=== PATIENT | male | born 1980 ===

== ENCOUNTER 2021-06-08 15:31 | Emergency (ER) | payer OTHER, SELFPAY ==
--- NOTE | ~2021-06-08 | XR_ITS ---
EXAMINATION: XR ANKLE, RIGHT CLINICAL INFORMATION: Deformity COMPARISON: None TECHNIQUE: AP, lateral, and mortise views of the right ankle. FINDINGS: No fracture or dislocation. The ankle mortise is congruent. There is circumferential soft tissue swelling which is greatest laterally. Ankle joint effusion present. Tiny Achilles heel spur. XR/XR ankle RT min 3V IMPRESSION: No fracture or malalignment. Soft tissue swelling.
[2021-06-08 15:55] VITALS: BP 133/81; PULSE 105; RESP 18; O2SAT 99; BMI 27.8
--- NOTE | 2021-06-08 16:59 | ED.LOWEXIN ---
HPI - Extremity Injury (Lower) General Chief Complaint: Extremity Injury, Lower Stated Complaint: ?fx rt ankle Time Seen by Provider: 06/08/21 16:05 Source: patient Mode of arrival: ambulatory Limitations: no limitations History of Present Illness HPI Narrative: 40-year-old male came in for evaluation of right ankle injury. Patient was carrying heavy couch going on the stair and thinks that he twisted his ankle, patient is able to ambulate with pain and difficulties. Related Data Previous Rx's Medication Instructions Recorded ibuprofen 600 mg tablet 600 mg PO TID PRN #20 tab 06/08/21 Allergies Allergy/AdvReac Type Severity Reaction Status Date / Time No Known Allergies Allergy Unverified 04/20/20 15:19 Review of Systems Review of Systems: All other systems are reviewed and are negative Constitutional: Reports as per HPI and Reports no additional constitutional complaints Eyes: Reports as per HPI and Reports no additional eye complaints Reports system reviewed and no additional complaints, except as documented Cardiovascular: Reports as per HPI and Reports no additional cardiovascular complaints Respiratory: Reports as per HPI and Reports no additional respiratory complaints Gastrointestinal: Reports as per HPI and Reports no additional gastrointestinal complaints Genitourinary: Reports no additional female genitourinary complaints Musculoskeletal: Reports no additional musculoskeletal complaints Skin/Breast: Reports system reviewed and no additional complaints, except as docu Psychiatric: Reports no additional psychiatric complaints Endocrine: Reports no additional endocrine complaints Hematologic/Lymphatic: Reports no additional hematologic/lymphatic complaints Allergic/Immunologic: Reports no additional allergic/immunologic complaints Reports system reviewed and no additional complaints, except as documented and Reports Abnormal speech present [facility] Past Medical History Medical History No pertinent past medical history Surgical History No pertinent past surgical history Social History Social History Advance Directives: No Advance Directives Information Provided: No Physical Exam Vital Signs: Vital Signs: Last Vital Signs Pulse 105 H 06/08/21 15:55 Resp 18 06/08/21 15:55 BP 133/81 06/08/21 15:55 Pulse Ox 99 06/08/21 15:55 Body Mass Index 27.8 Vital signs have been reviewed as appeared to be correct. Blood pressure normal. Heart rate normal. Respiration rate normal. Temperature normal. Oxygen saturation normal. Appearance: Alert. Oriented X3. No acute distress. Head: Normal external exam. Normocephalic. Atraumatic. No Subramanian signs noted. No raccoon eyes noted Eyes: PERRLA. EOMI. Conjunctiva and sclera normal. Eyelids normal. ENT: TM's Normal. Pharynx normal. Uvula midline. Moist mucous membranes. No trismus noted. No drooling noted. No muffled voice noted. Neck: Normal inspection. Neck supple. FROM. No adenopathy. Thyroid Normal. No meningeal signs. No neck mass noted. CVS: Normal heart rate and rhythm. Heart sound normal. No murmurs noted. Pulses normal throughout. Respiratory: No respiratory distress. Painless inspiration. Breath sounds normal. No wheezes/rales/rhonchi noted. Chest nontender. No accessory muscle usage noted or decreased air movement noted. Abdomen: Soft and nontender. Bowel sounds normal in all 4 quadrants. No distention noted. No organomegaly noted. No visible injury noted. Back: No CVA tenderness. Full range of motion noted. Skin: Skin warm and dry. Normal skin color. Normal skin turgor. No rashes/lesions/lacerations noted. Extremities: Right ankle: Mild tenderness and swelling over the lateral malleolus, no step-off, no deformity, neurovascular intact. Neuro: Oriented X 3. Cranial nerve exam: II-XII are grossly intact No motor deficit. No sensory deficit. Reflexes normal. Course Course Course Narrative: Assessment and plan. Right ankle contusion. Crutches/ice/elevation/NSAIDs. MDM - Extremity Injury (Lower) Medical Records Attestation: I reviewed the patient's medical records. Lab Data Attestation: I reviewed the patient's lab results. Imaging Data Right ankle x-ray: Radiologist's impression: No fracture or malalignment. Soft tissue swelling. Discharge Plan Discharge Clinical Impression: Ankle sprain and strain Patient Disposition: Home, Self-Care Instructions: Ankle Strain (ED) Prescriptions: New ibuprofen 600 mg tablet 600 mg PO TID PRN (Reason: pain) Qty: 20 RF: 0 Referrals: Herrera Contreras MD [Physician] - 2 days Stand Alone Forms: Work/School Release
[2021-06-08] MEDS: Ibuprofen 800 MG TABLET PO (17:55)
== END 2021-06-08 18:14 | disposition home or self-care (01) ==
PROVIDERS: Emergency Provider Emergency Medicine
DX: S93.401A Sprain of unspecified ligament of right ankle, initial encounter (principal); S96.911A Strain of unspecified muscle and tendon at ankle and foot level, right foot, initial encounter; W10.8XXA Fall (on) (from) other stairs and steps, initial encounter; Y93.89 Activity, other specified; Y92.008 Other place in unspecified non-institutional (private) residence as the place of occurrence of the external cause; Y99.9 Unspecified external cause status
CPT/HCPCS: 73610; 99283

== ENCOUNTER 2023-02-01 17:52 | Emergency (ER) | payer MEDICAID, SELFPAY ==
[2023-02-01 17:55] VITALS: BP 125/77; PULSE 99; RESP 18; TEMP 36.9; O2SAT 97; BMI 29.0
--- NOTE | 2023-02-01 17:56 | ED_ITS ---
HPI - General Adult General Chief complaint: Wound/Laceration Stated complaint: spider bit left leg Time Seen by Provider: 02/01/23 21:00 Source: patient Mode of arrival: ambulatory Limitations: no limitations History of Present Illness HPI narrative: 42-year-old male status post right AKA, homeless presents with left leg pain and swelling. Patient was bit by a spider 3 days ago. Over the last day and half he has had increasing redness and swelling to the left lower extremity. He describes pain as being tight. Is a 7/10. The pain does not radiate. There is no numbness or tingling. Symptoms are worse with ambulation. They are better with rest and elevation. He denies any chest pain or shortness of breath. Related Data Previous Rx's Medication Instructions Recorded sulfamethoxazole 800 1 tab PO Q12H #20 tabs 02/01/23 mg-trimethoprim 160 mg tablet (Bactrim DS) Allergies Allergy/AdvReac Type Severity Reaction Status Date / Time No Known Allergies Allergy Verified 02/01/23 17:58 Review of Systems Review of Systems: CONSTITUTIONAL: Denies weight loss, fever and chills. HEENT: Denies changes in vision and hearing. RESPIRATORY: Denies SOB and cough. CV: Denies palpitations no CP. GI: Denies abdominal pain, nausea, vomiting and diarrhea. : Denies dysuria and urinary frequency. MSK: Denies myalgia and joint pain. SKIN: + rash - pruritus. NEUROLOGICAL: Denies headache and syncope. PSYCHIATRIC: Denies recent changes in mood. Denies anxiety and depression. All other ROS are negative unless in HPI PMFSH Social History Social History Advance Directives: No Advance Directives Information Provided: No Physical Exam ED Vital Signs: Vital Signs - 24 hr 02/01/23 17:55 02/01/23 18:51 Temperature 98.5 F 98.9 F Pulse Rate 99 90 Respiratory Rate 18 16 Blood Pressure 125/77 120/81 Pulse Oximetry 97 97 Oxygen Delivery Method Room Air Room Air BMI result Body Mass Index 29.0 GEN: Well developed, no acute distress, alert, oriented HEENT: Normocephalic, atraumatic, normal external ears, nose appears normal Eyes: Normal to appearance Neck: Supple, no lymphadenopathy Respiratory: Talks in complete sentences, no respiratory distress Extremities: No clubbing cyanosis or edema Neurologic: No focal neurologic deficits, cranial nerves 2-12 intact, gait normal Skin: No rash, cellulitic changes the left lower extremity below the knee, evidence of abrasion/insect bite. There is no popliteal pain, neurovascularly intact in left, skin is warm and red tender to palpation. Course Course Course Narrative: RME performed by Noemi Anderson PA-C. Patient is a 42 year old assigned male at presenting to the emergency department with left lower leg pain after a spider bite. Patient states that he has been hanging out in the [place] a lot lately and believes he was bit by a spider. Patient states that he does have a history of IVDU. Labs ordered. Patient placed back in the waiting room pending room availability and results. Reevaluation(s) Reevaluation #1: The workup is complete. There is no significantly elevated white blood cell count, left shift or bandemia. Patient has cellulitic changes left lower extremity. Bactrim is appropriate since he is homeless. Doxycycline would cause photo sensitivity in would be a poor choice for him. Patient was given Tylenol and ibuprofen. I provided him with a sandwich, cheese and soft drink he will shrimp picker his prescription tomorrow morning. Return for any worsening or concerning symptoms. Time: 22:19 Medications Administered Discontinued Medications Generic Name Dose Route Start Last Admin Trade Name David PRN Reason Stop Dose Admin Acetaminophen 975 mg 02/01/23 21:10 02/01/23 21:24 Acetaminophen 325 Mg Tablet PO 02/01/23 21:11 975 mg ONCE ONE Administration Ibuprofen 600 mg 02/01/23 21:10 02/01/23 21:25 Ibuprofen 600 Mg Tablet PO 02/01/23 21:11 600 mg ONCE ONE Administration Trimethoprim/Sulfamethoxazole 1 tab 02/01/23 21:10 02/01/23 21:24 Sulfamethox/Trimeth 800/160 Tablet PO 02/01/23 21:11 1 tab ONCE ONE Administration Medical Decision Making Medical Decision Making [facility] Narrative: 42-year-old male presents with left lower extremity pain, swelling and redness. Symptoms started 3 days ago. Exam is consistent with cellulitis. There is no discrete abscess. The redness and swelling is to the anterior part of the leg where there is an abrasion/insect bite. Doubt DVT, PE, stasis dermatitis, etc. Plan: Antibiotics, analgesics Follow-up: Return to the emergency department if needed otherwise follow-up with primary care in 5 days. Differential Diagnosis Differential Diagnoses: The differential diagnosis associated with the prese ntation includes (See above) Admission/Observation Consideration of admission/observation: Escalation of care including admission/observation considered (Admission considered if significant bandemia found on CBC) Lab Data MDM Lab Attestation statement: I reviewed the patient's lab results. 02/01/23 18:34 02/01/23 18:34 Labs: Lab Results 02/01/23 02/01/23 02/01/23 Range/Units 18:34 18:34 18:34 WBC 10.9 H (4.8-10.8) X10*3/uL RBC 4.26 L (4.60-5.80) X10*6/uL Hgb 12.9 L (14.0-18.0) g/dl Hct 38.2 L (42.0-52.0) % MCV 89.7 (80.0-98.0) fL MCH 30.3 (27.0-33.0) pg MCHC 33.8 (31.0-36.0) g/dl RDW 12.6 (11.0-16.0) % Plt Count 303 (160-400) X10*3/uL MPV 10.3 (9.4-12.4) fL Immature Gran % (Auto) 0.3 (0.0-0.4) % Neut % (Auto) 68.4 (45-73) % Lymph % (Auto) 23.2 (20-40) % [place] % (Auto) 7.8 (2-11) % Eos % (Auto) 0.1 (0-4) % Baso % (Auto) 0.2 (0-2) % Lymph # (Auto) 2.5 (1.2-4.9) X10*3/uL [place] # (Auto) 0.9 (0.1-1.2) X10*3/uL Eos # (Auto) 0.0 (0.0-0.4) X10*3/uL Baso # (Auto) 0.0 (0.0-0.2) X10*3/uL Abs Immat Gran (auto) 0.03 (0.00-0.03) X10*3/uL Absolute Neuts (auto) 7.5 (2.0-8.3) x10*3/uL Absolute Nucleated RBC 0.000 (0.0-0.012) X10*3/uL Nucleated RBC % (auto) 0.0 (0.0-0.2) /100WBC ESR 29 H (0-15) MM/HR Sodium 139 (135-145) mmol/L Potassium 3.9 (3.3-5.1) mmol/L Chloride 104 (96-108) mmol/L Carbon Dioxide 24 (22-29) mmol/L Anion Gap 15 (12-20) BUN 16 (9-16) mg/dL Creatinine 1.01 (0.5-1.4) mg/dL Estim Creat Clear Calc 115.9 Estimated GFR > 60 Random Glucose 110 (60-115) mg/dL Lactic Acid (0.5-2.0) mmol/L Calcium 9.7 (8.4-10.2) mg/dL Magnesium 2.0 (1.6-2.6) mg/dL Total Bilirubin 0.4 (0.0-1.0) mg/dL AST 24 (5-37) U/L ALT 13 (0-40) U/L Alkaline Phosphatase 85 (39-117) U/L C-Reactive Protein 5.39 H (< or = 0.50) mg/dL Total Protein 8.2 H (6.5-8.0) g/dL Albumin 4.0 (3.5-5.0) g/dL 02/01/23 Range/Units 18:34 WBC (4.8-10.8) X10*3/uL RBC (4.60-5.80) X10*6/uL Hgb (14.0-18.0) g/dl Hct (42.0-52.0) % MCV (80.0-98.0) fL MCH (27.0-33.0) pg MCHC (31.0-36.0) g/dl RDW (11.0-16.0) % Plt Count (160-400) X10*3/uL MPV (9.4-12.4) fL Immature Gran % (Auto) (0.0-0.4) % Neut % (Auto) (45-73) % Lymph % (Auto) (20-40) % [place] % (Auto) (2-11) % Eos % (Auto) (0-4) % Baso % (Auto) (0-2) % Lymph # (Auto) (1.2-4.9) X10*3/uL [place] # (Auto) (0.1-1.2) X10*3/uL Eos # (Auto) (0.0-0.4) X10*3/uL Baso # (Auto) (0.0-0.2) X10*3/uL Abs Immat Gran (auto) (0.00-0.03) X10*3/uL Absolute Neuts (auto) (2.0-8.3) x10*3/uL Absolute Nucleated RBC (0.0-0.012) X10*3/uL Nucleated RBC % (auto) (0.0-0.2) /100WBC ESR (0-15) MM/HR Sodium (135-145) mmol/L Potassium (3.3-5.1) mmol/L Chloride (96-108) mmol/L Carbon Dioxide (22-29) mmol/L Anion Gap (12-20) BUN (9-16) mg/dL Creatinine (0.5-1.4) mg/dL Estim Creat Clear Calc Estimated GFR Random Glucose (60-115) mg/dL Lactic Acid 1.7 (0.5-2.0) mmol/L Calcium (8.4-10.2) mg/dL Magnesium (1.6-2.6) mg/dL Total Bilirubin (0.0-1.0) mg/dL AST (5-37) U/L ALT (0-40) U/L Alkaline Phosphatase (39-117) U/L C-Reactive Protein (< or = 0.50) mg/dL Total Protein (6.5-8.0) g/dL Albumin (3.5-5.0) g/dL Prescription Management I considered prescription management with: Pain Medication and Antibiotic Social Determinants Patient?s care significantly limited by Social Determinants of Health including: Inadequate housing Discharge Plan Discharge Clinical Impression: Cellulitis Patient Disposition: Home, Self-Care Instructions: Cellulitis (ED) Prescriptions: New sulfamethoxazole-trimethoprim [Bactrim DS] 800-160 mg tablet 1 tab PO Q12H Qty: 20 0RF Referrals: [facility] [Provider Group] - 5 days Interventions: ED Discharge Assessment Last Done: 02/01/23 22:12 Discharge Date/Time: 02/01/23 22:12
--- NOTE | 2023-02-01 18:38 | MHC.EDTECH ---
PATIENT 1ST SET OF BLOOD CULTURE ,LACTIC ACID AND BLOOD DRAWN AND SENT TO LAB .
[2023-02-01 18:51] VITALS: BP 120/81; PULSE 90; RESP 16; TEMP 37.2; O2SAT 97
--- NOTE | 2023-02-01 21:30 | PC.NURSE ---
pt medicated per OCT for 6/10 left leg pain, given sandwiches and shayna grey.
== END 2023-02-01 22:12 | disposition home or self-care (01) ==
PROVIDERS: Emergency Provider Emergency Medicine
DX: L03.116 Cellulitis of left lower limb (principal); M79.605 Pain in left leg
CPT/HCPCS: 36415; 80053; 83605; 83735; 85025; 85652; 86140; 87040; 99284; 99285

== ENCOUNTER 2023-02-05 17:50 | Emergency (ER) | payer MEDICAID, SELFPAY ==
[2023-02-05 18:03] VITALS: BP 118/74; PULSE 90; RESP 18; TEMP 37.4; O2SAT 96; BMI 29.8
--- NOTE | 2023-02-05 18:04 | ED_ITS ---
HPI - General Adult General Chief complaint: General Medical Stated complaint: seen prev. here for spider bite going down leg Time Seen by Provider: 02/05/23 18:31 Source: patient Mode of arrival: ambulatory Limitations: no limitations History of Present Illness HPI narrative: Patient is a 42-year-old male presents emergency department for evaluation of cellulitis of the left lower extremity. Patient was seen here reportedly a few days ago, was given a prescription for Bactrim which he has been compliant with. He states that the redness and swelling is improving but has not completely resolved therefore he wanted to have this re-evaluated. Denies fevers, chills, numbness or tingling to the extremity, inability to walk on the extremity. The swelling has not worsened by his account. Pain is currently 4/10, nonradiating. He denies any chest pain or shortness of breath. Related Data Previous Rx's Medication Instructions Recorded sulfamethoxazole 800 1 tab PO Q12H #20 tabs 02/01/23 mg-trimethoprim 160 mg tablet (Bactrim DS) Allergies Allergy/AdvReac Type Severity Reaction Status Date / Time No Known Allergies Allergy Verified 02/01/23 17:58 Review of Systems Review of Systems: Constitutional: No weight loss, fever, chills, weakness or fatigue. Skin: No rash or itching. Cardiovascular: No chest pain, chest pressure or chest discomfort. No palpita tions Respiratory: No shortness of breath, cough or sputum production. Gastrointestinal: No nausea, vomiting or diarrhea. No abdominal pain Genitourinary: No burning micturition. No urinary frequency or incontinence. Musculoskeletal: No muscle pain, back pain, joint pain or stiffness. Left lower extremity swelling and redness as per HPI with pain Psychiatric: No depression or anxiety. Yes all other systems are reviewed and are negative [facility] Past Medical History Attestation statement: The following information was validated with the patient. Source: old records reviewed Social History Social History Advance Directives: No Advance Directives Information Provided: No Physical Exam ED Vital Signs: Vital Signs - 24 hr 02/05/23 18:03 Temperature 99.4 F Pulse Rate 90 Respiratory Rate 18 Blood Pressure 118/74 Pulse Oximetry 96 Oxygen Delivery Method Room Air BMI result Body Mass Index 29.8 Appearance: Alert.?Oriented to person, place and time. No acute distress.?Normal affect. Eyes: Pupils equal, round and reactive to light.? ENT: Pharynx normal.?? Neck: Normal inspection.? Neck supple.?? CVS: Heart sounds normal. Normal heart rate and rhythm.? Pulses normal.?? Respiratory: No respiratory distress.? Lung sounds clear to auscultation bilaterally?? Abdomen: Soft and non-tender. Normoactive bowel sounds.?? Skin: Skin warm and dry.? Normal skin color.? ? Extremities: Left lower extremity with cellulitic changes; erythema and warmth with mild tenderness upon palpation below the knee with healing abrasions. Neurovascularly intact distally, 2+ DP/PT pulse bilaterally? No calf ttp? Neuro: Moves all extremities spontaneously. Sensation intact bilaterally. t. No focal neuro deficits. Ambulates with normal steady gait. Course Course Course Narrative: RME- 42-year-old male presents for evaluation of left lower leg redness. He was diagnosed with a cellulitis 4 days ago and has been on Bactrim since then. Reports his symptoms are worsening but denies fevers. Plan for labs including blood cultures Medical Decision Making Medical Decision Making [facility] [place] Narrative: Patient is a 42-year-old male who presents emergency department for evaluation of left lower extremity cellulitis, reportedly has been compliant with Bactrim. Upon examination cellulitis appears to be persistent, no obvious abscess, extremities neurovascularly intact distally. Cellulitis is actually improving but has not completely resolved. He has been on antibiotics for 4 days at this point, he was given a 10 day course. I reviewed labs obtained from rapid medical examination, no leukocytosis no bandemia, WBC is 7.7 which is actually improved from prior visit at 10.9, and chemistries are overall unremarkable. I considered ultrasound imaging of the lower extremity, however I have a low suspicion for DVT at this time. Feel the patient is stable for discharge home and continued Bactrim for management of cellulitis. Blood cultures were obtained, will be followed accordingly. Differential Diagnosis Differential Diagnoses: The differential diagnosis associated with the presentation includes (Cellulitis, abscess, DVT, this is dermatitis, insect bite ) Lab Data [facility] [place] Lab Attestation statement: I reviewed the patient's lab results. (As per narrative above) 02/05/23 19:46 02/05/23 19:27 Labs: Lab Results 02/05/23 02/05/23 Range/Units 19:27 19:46 WBC 7.7 (4.8-10.8) X10*3/uL RBC 4.21 L (4.60-5.80) X10*6/uL Hgb 12.6 L (14.0-18.0) g/dl Hct 37.3 L (42.0-52.0) % MCV 88.6 (80.0-98.0) fL MCH 29.9 (27.0-33.0) pg MCHC 33.8 (31.0-36.0) g/dl RDW 12.7 (11.0-16.0) % Plt Count 340 (160-400) X10*3/uL MPV 9.8 (9.4-12.4) fL Immature Gran % (Auto) 0.1 (0.0-0.4) % Neut % (Auto) 59.3 (45-73) % Lymph % (Auto) 35.2 (20-40) % [place] % (Auto) 4.9 (2-11) % Eos % (Auto) 0.1 (0-4) % Baso % (Auto) 0.4 (0-2) % Lymph # (Auto) 2.7 (1.2-4.9) X10*3/uL [place] # (Auto) 0.4 (0.1-1.2) X10*3/uL Eos # (Auto) 0.0 (0.0-0.4) X10*3/uL Baso # (Auto) 0.0 (0.0-0.2) X10*3/uL Abs Immat Gran (auto) 0.01 (0.00-0.03) X10*3/uL Absolute Neuts (auto) 4.6 (2.0-8.3) x10*3/uL Absolute Nucleated RBC 0.000 (0.0-0.012) X10*3/uL Nucleated RBC % (auto) 0.0 (0.0-0.2) /100WBC Sodium 139 (135-145) mmol/L Potassium 5.0 D (3.3-5.1) mmol/L Chloride 106 (96-108) mmol/L Carbon Dioxide 22 (22-29) mmol/L Anion Gap 16 (12-20) BUN 9 (9-16) mg/dL Creatinine 0.94 (0.5-1.4) mg/dL Estim Creat Clear Calc 122.6 Estimated GFR > 60 Random Glucose 87 (60-115) mg/dL Calcium 9.6 (8.4-10.2) mg/dL Total Bilirubin 0.3 (0.0-1.0) mg/dL AST 28 (5-37) U/L ALT 13 (0-40) U/L Alkaline Phosphatase 94 (39-117) U/L Total Protein 8.3 H (6.5-8.0) g/dL Albumin 3.9 (3.5-5.0) g/dL Lipase 11 (8-78) U/L External Record Review External record reviewed: Outpatient record Tests considered The following testing was considered but not selected: Considered ultrasound imaging as per narrative above however deferred Prescription Management I considered prescription management with: Other (Continued use of previously prescribed antibiotic) Social Determinants Patient?s care significantly limited by Social Determinants of Health including: Inadequate housing Discharge Plan Discharge Clinical Impression: Cellulitis Patient Disposition: Home, Self-Care Instructions: Cellulitis (ED) Additional Instructions: Your blood work today has actually improved from were seen here previously. This is very reassuring. Please continue to take the Bactrim as prescribed, you were given a ten-day course. If your symptoms are worsening, or you have any new concerns you are welcome to return back to the emergency department. Prescriptions: No Action sulfamethoxazole-trimethoprim [Bactrim DS] 800-160 mg tablet 1 tab PO Q12H Qty: 20 0RF Referrals: Physician,Unknown J [Primary Care Provider] -
== END 2023-02-05 20:34 | disposition home or self-care (01) ==
PROVIDERS: Emergency Provider Emergency Medicine Emergency Medical Services
DX: L03.116 Cellulitis of left lower limb (principal)
CPT/HCPCS: 36415; 80053; 83690; 85025; 87040; 99282; 99283

== ENCOUNTER 2023-03-06 15:20 | Emergency (ER) | payer MEDICAID, SELFPAY ==
--- NOTE | 2023-03-06 15:31 | ED.GENADULT ---
HPI - General Adult General Chief complaint: Nausea/Vomiting/Diarrhea Stated complaint: Dehydrated/Fall at park/n/v/chills Time Seen by Provider: 03/06/23 17:30 Source: patient Mode of arrival: ambulatory Limitations: no limitations History of Present Illness HPI narrative: patient been having low-grade fever body aches sore throat last 2 days with poor oral intake at almost passed out in the park feels very dehydrated no chest pain no abdominal pain Related Data Previous Rx's Medication Instructions Recorded ibuprofen 600 mg tablet 600 mg PO TID PRN pain #20 tabs 06/08/21 amoxicillin 875 mg-potassium 1 tab PO BID #20 tabs 03/06/23 clavulanate 125 mg tablet ibuprofen 600 mg tablet 600 mg PO Q6H PRN fever or pain 03/06/23 #30 tabs Allergies Allergy/AdvReac Type Severity Reaction Status Date / Time No Known Allergies Allergy Verified 03/06/23 15:31 Review of Systems Review of Systems: Yes all other systems are reviewed and are negative [facility] Past Medical History Medical History No pertinent past medical history Surgical History No pertinent past surgical history Social History Social History Alcohol intake: never Smoked in Last 30 Days: No Use of substances other than those prescribed or required for medical reasons: No Advance Directives: No Advance Directives Information Provided: No Physical Exam ED Vital Signs: Vital Signs - 24 hr 03/06/23 15:32 Temperature 98.3 F Pulse Rate 79 Respiratory Rate 18 Blood Pressure 123/75 Pulse Oximetry 96 Oxygen Delivery Method Room Air BMI result Body Mass Index 29.9 Appearance: Alert. Oriented X3. No acute distress. Eyes: PERRLA, No Nystagmus ENT: diffuse posterior pharyngeal erythema no exudate , Oral Mucosa moist Neck: Normal inspection. Neck supple. CVS: Normal heart rate and rhythm. Pulses normal. Respiratory: No respiratory distress. Equal air entry bilateral, no wheezing/rales/rhonchi Abdomen: Soft and nontender. Bowel sounds are present, no mass palpable, no CVA tenderness Skin: Skin warm and dry. Normal skin color. Normal skin turgor. Extremities: No lower extremity edema. No calf tenderness right BKA Neuro: Oriented X 3. No motor deficit. Course Course Course Narrative: This is a rapid medical exam: Additional HPI, ROS, PE not included below will be deferred to primary provider. Patient is a 42-year-old male presenting to the emergency department with family who report that patient had a syncopal episode at the park today which a friend notified family of. Patient states he has felt unwell since last night. Complains of generalized body aches. Family reports patient vomited while at the park today, and felt cold to bystanders. She states that the police and EMS were called but patient refused transport at that time. Patient denies diarrhea or abdominal pain. He does complain of sore throat. Plan: strep, covid, flu swabs, basic labs, UA, EKG Medications Administered Discontinued Medications Generic Name Dose Route Start Last Admin Trade Name Freq PRN Reason Stop Dose Admin Sodium Chloride 1,000 mls @ 999 mls/hr 03/06/23 17:30 03/06/23 20:58 Ns IV 03/06/23 18:30 Infused .Q1H1M ONE Infusion Ceftriaxone Sodium 1 gm/ 50 mls @ 100 mls/hr 03/06/23 17:30 03/06/23 20:06 Sodium Chloride IV 03/06/23 17:59 Infused ONCE ONE Infusion Ketorolac Tromethamine 30 mg 03/06/23 17:36 03/06/23 19:17 Ketorolac Tromethamine 30 Mg/Ml Vial IVPUSH 03/06/23 17:37 30 mg ONCE ONE Administration Medical Decision Making Lab Data 03/06/23 15:56 03/06/23 15:56 Labs: Lab Results 03/06/23 03/06/23 03/06/23 Range/Units 15:56 15:56 15:56 WBC 18.4 H (4.8-10.8) X10*3/uL RBC 4.25 L (4.60-5.80) X10*6/uL Hgb 12.5 L (14.0-18.0) g/dl Hct 37.5 L (42.0-52.0) % MCV 88.2 (80.0-98.0) fL MCH 29.4 (27.0-33.0) pg MCHC 33.3 (31.0-36.0) g/dl RDW 12.8 (11.0-16.0) % Plt Count 163 (160-400) X10*3/uL MPV 10.7 (9.4-12.4) fL Immature Gran % (Auto) 0.7 H (0.0-0.4) % Neut % (Auto) 87.9 H (45-73) % Lymph % (Auto) 6.4 L (20-40) % [place] % (Auto) 4.7 (2-11) % Eos % (Auto) 0.1 (0-4) % Baso % (Auto) 0.2 (0-2) % Lymph # (Auto) 1.2 (1.2-4.9) X10*3/uL [place] # (Auto) 0.9 (0.1-1.2) X10*3/uL Eos # (Auto) 0.0 (0.0-0.4) X10*3/uL Baso # (Auto) 0.0 (0.0-0.2) X10*3/uL Abs Immat Gran (auto) 0.13 H (0.00-0.03) X10*3/uL Absolute Neuts (auto) 16.2 H (2.0-8.3) x10*3/uL Absolute Nucleated RBC 0.000 (0.0-0.012) X10*3/uL Nucleated RBC % (auto) 0.0 (0.0-0.2) /100WBC Sodium 134 L (135-145) mmol/L Potassium 4.5 (3.3-5.1) mmol/L Chloride 101 (96-108) mmol/L Carbon Dioxide 23 (22-29) mmol/L Anion Gap 15 (12-20) BUN 11 (9-16) mg/dL Creatinine 0.88 (0.5-1.4) mg/dL Estim Creat Clear Calc 131.0 Estimated GFR > 60 Random Glucose 105 (60-115) mg/dL Calcium 9.0 (8.4-10.2) mg/dL Total Bilirubin 0.8 (0.0-1.0) mg/dL AST 20 (5-37) U/L ALT 13 (0-40) U/L Alkaline Phosphatase 76 (39-117) U/L Total Protein 7.8 (6.5-8.0) g/dL Albumin 3.8 (3.5-5.0) g/dL Urine Color Urine Appearance Urine pH (5.0-9.0) Ur Specific [place] (1.005-1.025) Urine Protein (Neg-Trace) mg/dL Urine Glucose (UA) (Negative) mg/dL Urine Ketones (Negative) mg/dL Urine Blood (Negative) Urine Nitrite (Negative) Ur Leukocyte Esterase (Negative) Urine RBC (0-2) /HPF Urine WBC (0-5) /HPF Ur Squamous Epith Cells (0-2) /HPF Urine Bacteria (None Seen) Hyaline Casts (0-2) /LPF COVID-19 (AMADEO) (Negative) COVID-19 Clin Com Influenza Type A (NICOLE) Negative (Negative) Influenza Type B (NICOLE) Negative (Negative) Influenza A & B Note See Note S. pyogenes GrpA NICOLE (Negative) 03/06/23 03/06/23 03/06/23 Range/Units 15:56 15:56 16:01 WBC (4.8-10.8) X10*3/uL RBC (4.60-5.80) X10*6/uL Hgb (14.0-18.0) g/dl Hct (42.0-52.0) % MCV (80.0-98.0) fL MCH (27.0-33.0) pg MCHC (31.0-36.0) g/dl RDW (11.0-16.0) % Plt Count (160-400) X10*3/uL MPV (9.4-12.4) fL Immature Gran % (Auto) (0.0-0.4) % Neut % (Auto) (45-73) % Lymph % (Auto) (20-40) % [place] % (Auto) (2-11) % Eos % (Auto) (0-4) % Baso % (Auto) (0-2) % Lymph # (Auto) (1.2-4.9) X10*3/uL [place] # (Auto) (0.1-1.2) X10*3/uL Eos # (Auto) (0.0-0.4) X10*3/uL Baso # (Auto) (0.0-0.2) X10*3/uL Abs Immat Gran (auto) (0.00-0.03) X10*3/uL Absolute Neuts (auto) (2.0-8.3) x10*3/uL Absolute Nucleated RBC (0.0-0.012) X10*3/uL Nucleated RBC % (auto) (0.0-0.2) /100WBC Sodium (135-145) mmol/L Potassium (3.3-5.1) mmol/L Chloride (96-108) mmol/L Carbon Dioxide (22-29) mmol/L Anion Gap (12-20) BUN (9-16) mg/dL Creatinine (0.5-1.4) mg/dL Estim Creat Clear Calc Estimated GFR Random Glucose (60-115) mg/dL Calcium (8.4-10.2) mg/dL Total Bilirubin (0.0-1.0) mg/dL AST (5-37) U/L ALT (0-40) U/L Alkaline Phosphatase (39-117) U/L Total Protein (6.5-8.0) g/dL Albumin (3.5-5.0) g/dL Urine Color Yellow Urine Appearance Clear Urine pH 7.5 (5.0-9.0) Ur Specific [place] >= 1.030 H (1.005-1.025) Urine Protein 30 (1+) H (Neg-Trace) mg/dL Urine Glucose (UA) Negative (Negative) mg/dL Urine Ketones 15 (Negative) mg/dL Urine Blood Negative (Negative) Urine Nitrite Negative (Negative) Ur Leukocyte Esterase Trace H (Negative) Urine RBC 6-10 H (0-2) /HPF Urine WBC 0-5 (0-5) /HPF Ur Squamous Epith Cells 0-2 (0-2) /HPF Urine Bacteria None Seen (None Seen) Hyaline Casts 0-2 (0-2) /LPF COVID-19 (AMADEO) Negative (Negative) COVID-19 Clin Com See Note Influenza Type A (NICOLE) (Negative) Influenza Type B (NICOLE) (Negative) Influenza A & B Note S. pyogenes GrpA NICOLE Positive A (Negative) Discharge Plan Discharge Clinical Impression: Acute streptococcal pharyngitis Patient Disposition: Home, Self-Care Instructions: Strep Throat (ED) Additional Instructions: drink plenty of fluids take antibiotic as prescribed ibuprofen for pain follow with PCP if not better Prescriptions: New ibuprofen 600 mg tablet 600 mg PO Q6H PRN (Reason: fever or pain) Qty: 30 0RF amoxicillin-pot clavulanate 875-125 mg tablet 1 tab PO BID Qty: 20 0RF No Action ibuprofen 600 mg tablet 600 mg PO TID PRN (Reason: pain) Qty: 20 0RF Interventions: ED Discharge Assessment Last Done: 03/06/23 21:10 Discharge Date/Time: 03/06/23 21:11
[2023-03-06 15:32] VITALS: BP 123/75; PULSE 79; RESP 18; TEMP 36.8; O2SAT 96; BMI 29.9
--- NOTE | 2023-03-06 15:35 | ECG_ITS ---
Test Reason : syncopy Blood Pressure : / mmHG Vent. Rate : 079 BPM Atrial Rate : 079 BPM P-R Int : 134 ms QRS Dur : 118 ms QT Int : 382 ms P-R-T Axes : 066 014 043 degrees QTc Int : 438 ms Normal sinus rhythm Non-specific intra-ventricular conduction delay Borderline ECG No previous ECGs available Referred By: Lucero Barrios Electronically Signed By:AKILAH ESCOBAR
[2023-03-06 16:03] LABS: MANUAL DIFF FLAG NO
[2023-03-06 16:05] LABS: Basophils Percent Auto 0.2 % (0-2); Eosinophils Percent Auto 0.1 % (0-4); Hematocrit 37.5 % (42.0-52.0); Hemoglobin 12.5 g/dl (14.0-18.0); Imm Gran Abs Auto 0.13 X10*3/uL (0.00-0.03); Imm Gran Pct Auto 0.7 % (0.0-0.4); Lymphocytes Absolute Auto 1.2 X10*3/uL (1.2-4.9); Lymphocytes Percent Auto 6.4 % (20-40); Mean Corpuscular HGB Conc 33.3 g/dl (31.0-36.0); Mean Corpuscular Hemoglobin 29.4 pg (27.0-33.0); Mean Corpuscular Volume 88.2 fL (80.0-98.0); Mean Platelet Volume 10.7 fL (9.4-12.4); Monocytes Absolute Auto 0.9 X10*3/uL (0.1-1.2); Monocytes Percent Auto 4.7 % (2-11); Neutrophils Absolute Auto 16.2 x10*3/uL (2.0-8.3); Neutrophils Percent Auto 87.9 % (45-73); Platelet Count 163 X10*3/uL (160-400); Red Blood Count 4.25 X10*6/uL (4.60-5.80); Red Cell Distribution Width 12.8 % (11.0-16.0); White Blood Count 18.4 X10*3/uL (4.8-10.8)
[2023-03-06 16:11] LABS: Appearance Urine Clear; Color Urine Yellow; Glucose Urine UA Negative (Negative); Leukocyte Esterase Urine Trace (Negative); Nitrite Urine Negative (Negative); PH 7.5 (5.0-9.0); Specific Gravity - Urine >= 1.030 (1.005-1.025); UMIC TRIGGER UACC YES; Urine Blood Negative (Negative); Urine Ketones 15 mg/dL (Negative); Urine Protein 30 (1+) mg/dL (Neg-Trace)
[2023-03-06 16:19] LABS: Alanine Aminotransferase 13 U/L (0-40); Albumin Level 3.8 g/dL (3.5-5.0); Alkaline Phosphatase 76 U/L (39-117); Anion Gap 15 (12-20); Aspartate Amino Transferase 20 U/L (5-37); Bilirubin Total 0.8 mg/dL (0.0-1.0); Blood Urea Nitrogen 11 mg/dL (9-16); Carbon Dioxide 23 mmol/L (22-29); Chloride 101 mmol/L (96-108); Estimated Glomerular Filt Rate > 60; Glucose Random 105 mg/dL (60-115); Potassium 4.5 mmol/L (3.3-5.1); Sodium 134 mmol/L (135-145); Total Protein 7.8 g/dL (6.5-8.0)
[2023-03-06 16:24] LABS: Bacteria Urine None Seen (None Seen); Hyaline Casts Urine 0-2 /LPF (0-2); Squamous Epithelial Cell Urine 0-2 /HPF (0-2); WBC Urine 0-5 /HPF (0-5)
[2023-03-06 16:43] LABS: COVID-19 Test Negative (Negative); IDNOW Serial# 08D9AD1C; IDNOW Serial# 9DB6401D; IDNOW Serial# BCCEAD1C; Influenza A Negative (Negative); Influenza B2 Negative (Negative); Strep A Nucleic Acid Positive (Negative)
[2023-03-06] MEDS: 0.9 % Sodium Chloride 1,000 ML 999 ML IV (19:15)
[2023-03-06] MEDS: Ketorolac Tromethamine 30 MG/ML VIAL IVPUSH (19:17)
[2023-03-06] MEDS: cefTRIAXone sodium 1 GM in 0.9 % Sodium Chloride 50 ML IV (19:21)
--- NOTE | 2023-03-06 19:36 | PC.NURSE ---
Assumed care of the pt at 1900. Pt complaining of8/10 pain all over. Pt is A&Ox4, GCS 15, with warm, dry skin. I placed a 20g IV into the pt left hand. Line is patent and secured with fluids and antibiotics going.
== END 2023-03-06 21:11 | disposition home or self-care (01) ==
PROVIDERS: Registered Nurse Emergency; Emergency Provider Internal Medicine
DX: J02.0 Streptococcal pharyngitis (principal); R11.2 Nausea with vomiting, unspecified; R55 Syncope and collapse; E86.0 Dehydration; Z20.822 Contact with and (suspected) exposure to COVID-19; Z20.828 Contact with and (suspected) exposure to other viral communicable diseases; Z79.899 Other long term (current) drug therapy
CPT/HCPCS: 80053; 81001; 85025; 87502; 87635; 87651; 93005; 96361; 96374; 96375; 99285; J0696; J1885

== ENCOUNTER → 2023-03-06 15:35 | Outpatient (BNV) | payer MEDICAID, SELFPAY | PROVIDERS: Emergency Provider Internal Medicine; Visit Provider Internal Medicine | DX: R55 Syncope and collapse (principal); R94.31 Abnormal electrocardiogram [ECG] [EKG] | CPT/HCPCS: 93010 ==

== ENCOUNTER 2024-04-17 09:54 | Emergency (ER) | payer MEDICAID, SELFPAY ==
--- NOTE | ~2024-04-17 | MR_ITS ---
EXAMINATION: MRI LOWER LEG WITHOUT AND WITH CONTRAST, RIGHT CLINICAL INFORMATION: Possible fibula osteomyelitis on radiographs COMPARISON: Same-day radiograph TECHNIQUE: MRI without and with intravenous administration of 9 mL of Gadavist is performed on the right lower leg FINDINGS: There is diffuse subcutaneous edema throughout the lower leg, extending around the tibia and fibula osteotomy stump lateral to the fibular head overall measuring approximately 2.2 x 1.0 x 3.0 cm. Although the possibility of infection cannot be excluded, this most likely represents adventitial bursitis. Degenerative changes are noted of the tibiofibular joint. Remote [place]-Schlatter's. There is a very small cutaneous collection lateral to the distal fibula measuring approximately 0.9 x 0.2 cm. Prominent subcutaneous distal to the stump without a focal fluid collection. Areas of reticular enhancement could represent cellulitis. There is no evidence of active osteomyelitis. The focus of lucency at the distal fibula on the radiograph may represent postsurgical bone resorption or site of prior infection. MR/MR lower leg RT wo/w con IMPRESSION: 1. No evidence of active osteomyelitis. 2. Diffuse subcutaneous edema throughout the lower leg with a subcentimeter cutaneous collection lateral to the distal fibula. A 3 cm poorly defined subcutaneous collection lateral to the fibular head most likely represents adventitial bursitis. 3. The focus of lucency at the distal fibula on the radiograph may represent postsurgical bone resorption or site of prior infection. Electronically signed by: Brian Martinez MD 04/18/2024 08:17 AM EDT
--- NOTE | ~2024-04-17 | XR_ITS ---
EXAMINATION: XR TIBIA AND FIBULA, RIGHT CLINICAL INFORMATION: Infection on lateral aspect of the stump COMPARISON: None available. TECHNIQUE: AP and lateral views of the right tibia and fibula were obtained. FINDINGS: Status post mhxpg-fww-hvyo amputation. There is some patchy focal osteopenia along the surgical margin of the fibular diaphysis, and osteomyelitis could have this appearance. Diffuse soft tissue swelling. Bulky ossific fragment anterior to the tibial tubercle may reflect sequelae of remote [place]-Schlatter's disease. Patellar tendon enthesopathy. XR/XR tibia fibula RT 2V IMPRESSION: 1. Status post bhukc-lra-zihi amputation. There is some patchy focal osteopenia along the surgical margin of the fibular diaphysis, and osteomyelitis could have this appearance, recommend correlation with MR. Diffuse soft tissue swelling. 2. Bulky ossific fragment anterior to the tibial tubercle may reflect sequelae of remote [place]-Schlatter's disease. Electronically signed by: Lisa Perez MD 04/17/2024 03:04 PM EDT
[2024-04-17 09:59] VITALS: BP 109/69; PULSE 66; RESP 18; TEMP 36.8; O2SAT 98; BMI 29.8
[2024-04-17 10:50] LABS: Basophils Percent Auto 0.4 % (0-2); Eosinophils Absolute Auto 0.1 X10*3/uL (0.0-0.4); Eosinophils Percent Auto 1.9 % (0-4); Hematocrit 34.5 % (42.0-52.0); Hemoglobin 11.3 g/dl (14.0-18.0); Imm Gran Abs Auto 0.03 X10*3/uL (0.00-0.03); Imm Gran Pct Auto 0.4 % (0.0-0.4); Lymphocytes Absolute Auto 3.1 X10*3/uL (1.2-4.9); Lymphocytes Percent Auto 44.2 % (20-40); Mean Corpuscular HGB Conc 32.8 g/dl (31.0-36.0); Mean Corpuscular Hemoglobin 28.9 pg (27.0-33.0); Mean Corpuscular Volume 88.2 fL (80.0-98.0); Mean Platelet Volume 10.1 fL (9.4-12.4); Monocytes Absolute Auto 0.6 X10*3/uL (0.1-1.2); Monocytes Percent Auto 8.9 % (2-11); Neutrophils Absolute Auto 3.1 x10*3/uL (2.0-8.3); Neutrophils Percent Auto 44.2 % (45-73); Platelet Count 249 X10*3/uL (160-400); Red Blood Count 3.91 X10*6/uL (4.60-5.80); Red Cell Distribution Width 13.7 % (11.0-16.0); White Blood Count 6.9 X10*3/uL (4.8-10.8)
--- NOTE | 2024-04-17 12:17 | ED_ITS ---
HPI - General Adult General Chief complaint: General Medical Stated complaint: r leg infection Time Seen by Provider: 04/17/24 12:17 History of Present Illness ED Provider: Jos VIERA narrative: The patient is a 43-year-old male who has a right aqync-szq-rfoo amputation. He says he is not a diabetic. He says that he had significant foot infection which resulted in the amputation. He said that he has been using IV drugs at the time. The amputation was done at the [facility] in [place]. He gets prosthetic care from [facility] in [place]. He gets his primary care through [facility]. He says he has not seen any specialist related to his amputation since the time of the surgery itself. He comes to the emergency room because he has developed a wound on the lateral aspect of the stump. He has an area of scabbing and slight drainage. He has had this problem for about 5 days. He denies any injury. He thinks he might have had a fever a few days ago. He has not been wearing the sleeve for his prosthetic leg because of this infection. He says he has had swelling. Related Data Previous Rx's ?Medication ?Instructions ?Recorded ibuprofen 600 mg tablet 600 mg PO TID PRN pain #20 tabs 06/08/21 sulfamethoxazole 800 1 tab PO Q12H #20 tabs 02/01/23 mg-trimethoprim 160 mg tablet (Bactrim DS) amoxicillin 875 mg-potassium 1 tab PO BID #20 tabs 03/06/23 clavulanate 125 mg tablet ibuprofen 600 mg tablet 600 mg PO Q6H PRN fever or pain 03/06/23 #30 tabs cephalexin 500 mg capsule 500 mg PO QID #40 caps 04/17/24 sulfamethoxazole 800 1 tab PO BID #20 tabs 04/17/24 mg-trimethoprim 160 mg tablet (Bactrim DS) Allergies Allergy/AdvReac Type Severity Reaction Status Date / Time No Known Allergies Allergy Verified 04/17/24 10:00 Review of Systems 2 Review of Systems: Yes all other systems are reviewed and are negative [facility] Past Medical History Medical History No pertinent past medical history Surgical History No pertinent past surgical history Social History Social History (System 06/06/23 @ 13:25 by Georgina Dumont) Alcohol intake: never Smoked in Last 30 Days: Yes Use of substances other than those prescribed or required for medical reasons: Yes Advance Directives: No Advance Directives Information Provided: No Do you have a plan to hurt others: No Plan Physical Exam ED Vital Signs: Vital Signs - 24 hr 04/17/24 09:59 04/17/24 14:50 Temperature 98.2 F 97.4 F Pulse Rate 66 87 Respiratory Rate 18 16 Blood Pressure 109/69 116/61 Pulse Oximetry 98 96 Oxygen Delivery Method Room Air Room Air BMI result Body Mass Index 29.8 Const Other: The patient is a 43-year-old male who was awake and alert. He has a generally healthy appearance overall although he has a right zlvnz-gbt-mcsj amputation. He does not appear acutely ill. HENMT Other: Face is symmetrical. Mucous membranes moist. Eyes Other: Pupils are round equal, conjunctivae are clear Neck Neck: Yes full ROM Resp Effort & Inspection: normal respiratory effort Auscultation: clear to auscultation bilaterally Cardio Rate: regular rate Rhythm: regular rhythm Heart sounds: S1 normal heart sound present and S2 normal heart sound present Skin Other: The patient has a 2 cm area of wound on the lateral aspect of the stump of his right leg. It has a scabbed appearance with a minimal amount of purulent drainage. There is no fluctuance. Neuro Other: The patient is awake and alert with a normal mental status. Extrem Other: The patient has a right tlsff-xzg-bkwl amputation. On the lateral aspect of the stump of the amputation is a lesion consistent with the wound with a small amount of purulent drainage. I do not think there is surrounding erythema. I do not appreciate any fluctuance. I was able to squeeze the area quite significantly without any significant release of pus through the wound. The patient has a good range of motion of the knee joint. Medications Administered Discontinued Medications Generic Name Dose Route Start Last Admin Trade Name Freq PRN Reason Stop Dose Admin Cephalexin HCl 1,000 mg 04/17/24 14:40 04/17/24 14:51 Cephalexin 500 Mg Capsule PO 04/17/24 14:41 1,000 mg ONCE ONE Administration Trimethoprim/Sulfamethoxazole 1 tab 04/17/24 14:40 04/17/24 14:51 Sulfamethox/Trimeth 800/160 Tablet PO 04/17/24 14:41 1 tab ONCE ONE Administration Medical Decision Making Medical Decision Making [facility] Narrative: The patient is a 43-year-old male who has a right ctybr-uem-jeow amputation. He is not a diabetic. He has a history of IV drug use. He has a right ydrxp-fxo-kpbb amputation that is 2 years old. This was done at [facility] in [place]. He has a prosthesis that he gets through the [facility] in [place]. My initial impression was that the patient has a superficial wound. My plan was to treat the patient with oral antibiotics, cephalexin and doxycycline. I was able to speak with Dr. Venegas who recommended Durafiber AG, nonuse of the prosthetic device until significant healing, and crutches in the interim with follow up at the [facility]. Somewhat to my surprise the patient's x-ray of the affected area was read as showing findings possibly consistent with osteomyelitis. I therefore initially expected the patient to be discharged on oral antibiotics and the patient had received his 1st dose of doxycycline and cephalexin. After I was aware of the x-ray findings I was able to order an MRI. The patient has had an MRI before and does not know of any contraindications. The patient was given IV so that this could be a contrast MRI. I will be signing the patient out to the oncoming emergency physician pending the results of the MRI. If the MRI does not show findings of osteomyelitis the patient may be discharged with the current plan to take doxycycline and cephalexin, use the dressing provided, use crutches instead of his prosthesis, and follow up with the [facility]. If the MRI is consistent with osteomyelitis he will probably need to be admitted. He will be signed out to the oncoming emergency physician pending the results of the MRI. Lab Data 04/17/24 10:44 04/17/24 12:36 Labs: Lab Results 04/17/24 04/17/24 04/17/24 Range/Units 10:44 12:36 12:39 WBC 6.9 (4.8-10.8) X10*3/uL RBC 3.91 L (4.60-5.80) X10*6/uL Hgb 11.3 L (14.0-18.0) g/dl Hct 34.5 L (42.0-52.0) % MCV 88.2 (80.0-98.0) fL MCH 28.9 (27.0-33.0) pg MCHC 32.8 (31.0-36.0) g/dl RDW 13.7 (11.0-16.0) % Plt Count 249 D (160-400) X10*3/uL MPV 10.1 (9.4-12.4) fL Immature Gran % (Auto) 0.4 (0.0-0.4) % Neut % (Auto) 44.2 L (45-73) % Lymph % (Auto) 44.2 H (20-40) % [place] % (Auto) 8.9 (2-11) % Eos % (Auto) 1.9 (0-4) % Baso % (Auto) 0.4 (0-2) % Lymph # (Auto) 3.1 (1.2-4.9) X10*3/uL [place] # (Auto) 0.6 (0.1-1.2) X10*3/uL Eos # (Auto) 0.1 (0.0-0.4) X10*3/uL Baso # (Auto) 0.0 (0.0-0.2) X10*3/uL Abs Immat Gran (auto) 0.03 (0.00-0.03) X10*3/uL Absolute Neuts (auto) 3.1 (2.0-8.3) x10*3/uL Absolute Nucleated RBC 0.000 (0.0-0.012) X10*3/uL Nucleated RBC % (auto) 0.0 (0.0-0.2) /100WBC ESR 43 H (0-15) MM/HR Sodium 139 (135-145) mmol/L Potassium 3.9 (3.3-5.1) mmol/L Chloride 106 (96-108) mmol/L Carbon Dioxide 25 (22-29) mmol/L Anion Gap 12 (12-20) BUN 9 (9-16) mg/dL Creatinine 0.75 (0.5-1.4) mg/dL Estim Creat Clear Calc 152.1 Estimated GFR > 60 Random Glucose 95 (60-115) mg/dL Calcium 9.3 (8.4-10.2) mg/dL Total Bilirubin 0.2 (0.0-1.0) mg/dL AST 17 (5-37) U/L ALT 10 (0-40) U/L Alkaline Phosphatase 78 (39-117) U/L C-Reactive Protein 4.34 H (< or = 0.50) mg/dL Total Protein 7.4 (6.5-8.0) g/dL Albumin 3.6 (3.5-5.0) g/dL Discharge Plan Discharge Clinical Impression: Skin infection, Infection of right below knee amputation Patient Disposition: Still a Patient Additional Instructions: I have sent prescriptions for antibiotics to the [facility] in [place]. Please take the cephalexin 4 times a day, approximately every 6 hours. Please take the sulfamethoxazole-trimethoprim (also known as Bactrim) 2 times a day, approximately every 12 hours. Please use the Durafiber-Ag dressing as recommended by the surgeon. Do no use your prosthesis until your wound is doing much better. Use crutches instead until then. Please contact the [facility] on Friday to set up a follow up appointment. Also plan on following up with your regular doctor (Dr. Santiago is 1 of the doctors at your regular Clinic). Return to the emergency room if significantly worse. Prescriptions: New sulfamethoxazole-trimethoprim [Bactrim DS] 800-160 mg tablet 1 tab PO BID Qty: 20 0RF cephalexin 500 mg capsule 500 mg PO QID Qty: 40 0RF No Action ibuprofen 600 mg tablet 600 mg PO TID PRN (Reason: pain) Qty: 20 0RF ibuprofen 600 mg tablet 600 mg PO Q6H PRN (Reason: fever or pain) Qty: 30 0RF amoxicillin-pot clavulanate 875-125 mg tablet 1 tab PO BID Qty: 20 0RF sulfamethoxazole-trimethoprim [Bactrim DS] 800-160 mg tablet 1 tab PO Q12H Qty: 20 0RF Referrals: [facility] [Provider Group] (Skin infection on stump of right ekavb-zxr-mwqe amputation) Trice Santiago MD [Physician] - (Infection of skin of right pxesv-tdh-lmha infection stump) Print Language: Indonesian
--- NOTE | 2024-04-17 12:35 | PC.NURSE ---
wound culture/labs obtained by tech and sent to lab. pt waiting to have xray completed at this time. resting in stretcher in no apparent distress. no sob/wob noted. respirations remain even/unlabored. plan of care ongoing. call alicea placed within reach.
--- NOTE | 2024-04-17 12:55 | PC.NURSE ---
pt to xray at this time.
[2024-04-17 13:13] LABS: Alanine Aminotransferase 10 U/L (0-40); Albumin Level 3.6 g/dL (3.5-5.0); Alkaline Phosphatase 78 U/L (39-117); Anion Gap 12 (12-20); Aspartate Amino Transferase 17 U/L (5-37); Blood Urea Nitrogen 9 mg/dL (9-16); C Reactive Protein 4.34 mg/dL (< or = 0.50); Calcium 9.3 mg/dL (8.4-10.2); Carbon Dioxide 25 mmol/L (22-29); Chloride 106 mmol/L (96-108); Creatinine Clr Calc Pharmacy 152.1; Estimated Glomerular Filt Rate > 60; Glucose Random 95 mg/dL (60-115); Potassium 3.9 mmol/L (3.3-5.1); Sodium 139 mmol/L (135-145); Total Protein 7.4 g/dL (6.5-8.0)
[2024-04-17 13:26] LABS: Erythrocyte Sedimentation Rate 43 MM/HR (0-15)
[2024-04-17 13:34] LABS: Bilirubin Total 0.2 mg/dL (0.0-1.0)
[2024-04-17 14:50] VITALS: BP 116/61; PULSE 87; RESP 16; TEMP 36.3; O2SAT 96
[2024-04-17] MEDS: Sulfamethox/Trimeth 800/160 TABLET 1 TAB PO (14:51)
[2024-04-17] MEDS: cephALEXin 500 MG CAPSULE 1000 MG PO (14:51)
--- NOTE | 2024-04-17 16:00 | PC.NURSE ---
20gIV placed in the right hand. pt waiting to go to MRI at this time. plan of care ongoing. call alicea placed within reach.
--- NOTE | 2024-04-17 17:07 | PC.NURSE ---
ETA for MRI to be completed is 1800. pt as well as provider notified/aware. pt otherwise continues to rest comfortably in no apparent distress. no sob/wob noted. respirations even/unlabored. plan of care ongoing. call alicea placed within reach.
--- NOTE | 2024-04-17 17:18 | PC.NURSE ---
pt to MRI at this time.
--- NOTE | 2024-04-17 18:45 | PC.NURSE ---
original IV access in right hand blew while in MRI. this RN assisted MRI and placed a new 20gIV in the left hand - access currently patent/intact. MRI currently being completed at this time.
[2024-04-17] MEDS: gadobutroL 10 ML VIAL IVPUSH (18:48)
[2024-04-17 21:10] VITALS: BP 116/74; PULSE 66; RESP 16; TEMP 36.7; O2SAT 99
[2024-04-17 21:27] VITALS: BP 116/74; PULSE 66; RESP 17; TEMP 36.7; O2SAT 99
== END 2024-04-17 21:28 | disposition home or self-care (01) ==
PROVIDERS: Emergency Medicine; Emergency Provider Emergency Medicine Emergency Medical Services
DX: T87.43 Infection of amputation stump, right lower extremity (principal); Y83.8 Other surgical procedures as the cause of abnormal reaction of the patient, or of later complication, without mention of misadventure at the time of the procedure; Y82.9 Unspecified medical devices associated with adverse incidents; Y92.9 Unspecified place or not applicable; Z89.511 Acquired absence of right leg below knee
CPT/HCPCS: 36415; 73590; 73719; 73720; 80053; 85025; 85652; 86140; 87070; 87077; 87147; 87186; 87205; 96374; 99284; 99285; A9585